=== PATIENT | female | born 1955 | race Caucasian/White ===

== ENCOUNTER 2021-07-02 08:21 | Outpatient (REF) | payer MEDICARE, OTHER, SELFPAY ==
--- NOTE | ~2021-07-02 | XR_ITS ---
EXAMINATION: XR THORACOLUMBAR SPINE CLINICAL INFORMATION: Thoracic spine pain COMPARISON: None TECHNIQUE: Frontal and lateral radiographs were acquired of the dorsal spine. FINDINGS: Vertebral body height is preserved. Multilevel degenerative disc disease is present characterized by disc space narrowing and endplate sclerosis. No fracture or dislocation is detected. There are no bone lesions. XR/XR thoracic spine 2V IMPRESSION: Multilevel thoracic degenerative disc disease with disc space narrowing.
== END 2021-07-02 08:22 | disposition home or self-care (01) ==
LOC: HO.XRAY 08:21
PROVIDERS: PCP Internal Medicine; Visit Provider Internal Medicine
DX: M54.6 Pain in thoracic spine (principal); G89.29 Other chronic pain; M79.7 Fibromyalgia; M25.50 Pain in unspecified joint; Z79.891 Long term (current) use of opiate analgesic
CPT/HCPCS: 72070

== ENCOUNTER → 2021-07-09 10:49 | Outpatient (BNVA) | payer MEDICARE, OTHER, SELFPAY | PROVIDERS: PCP Internal Medicine; Visit Provider Internal Medicine | DX: R52 Pain, unspecified (principal); M25.50 Pain in unspecified joint; M54.6 Pain in thoracic spine; R53.82 Chronic fatigue, unspecified | CPT/HCPCS: 99212 ==